=== PATIENT | male | born 1955 | race Caucasian/White ===

== ENCOUNTER 2025-02-19 10:00 | Outpatient (RCR) | payer MEDICARE, SELFPAY ==
[2024-11-05 08:59] VITALS: BP 145/69; PULSE 69; O2SAT 95
== END 2025-02-19 13:34 | disposition home or self-care (01) ==
LOC: HO.PT 10:00
PROVIDERS: PCP Family Medicine; Visit Provider Orthopaedic Surgery
DX: M25.561 Pain in right knee (principal)
CPT/HCPCS: 97110; 97140; 97162; 97530; 97535